=== PATIENT | male | born 1950 | race Caucasian/White ===

== ENCOUNTER 2020-05-13 16:27 | Inpatient (IN) | payer MEDICARE, OTHER ==
[~2020-05-13] VITALS: Ht 165.1 cm; Wt 61.7 kg
--- NOTE | 2020-05-13 16:40 | NUR ---
BIB [facility] FOR UNWITNESSED FALL. PATIENT A/OX4, BREATHING EVEN AND UNLABORED, NO SOB NOTED, NEEDS ATTENDED, KEPT COMFORTABLE.
--- NOTE | 2020-05-13 17:01 | NUR ---
TRUMAN SAWANT ([facility]) - [phone]
[2020-05-13 17:10] LABS: BASOPHILS % (AUTO) 0.5 % (0.0-2.0); EOSINOPHILS % (AUTO) 2.3 % (0.0-6.0); HEMATOCRIT 39 % (39-51); HEMOGLOBIN 13.2 g/dL (13.5-17.5); LYMPHOCYTES # (AUTO) 1.5 /CMM (0.8-4.8); LYMPHOCYTES % (AUTO) 20.8 % (20.0-44.0); MEAN CORPUSCULAR HGB CONC 34 g/dl (31.0-36.0); MEAN CORPUSCULAR VOLUME 91 fL (80-96); MONOCYTES # (AUTO) 0.4 /CMM (0.1-1.30); MONOCYTES % (AUTO) 5.9 % (2.0-12.0); NEUTROPHILS % (AUTO) 70.5 % (43.0-81.0); PLATELET COUNT (AUTO) 203 /CMM (150-450); RED BLOOD CELL COUNT(AUTO) 4.32 MIL/uL (4.5-6.0); WHITE BLOOD COUNT (AUTO) 7.1 K/uL (4.3-11.0)
[2020-05-13 17:17] LABS: CALCIUM, SERUM 8.7 mg/dL (8.5-10.1); CREATININE 1.1 mg/dL (0.6-1.3); POTASSIUM 4.2 mmol/L (3.5-5.1)
[2020-05-13] MEDS ORDERED: LEVO75TA7 PO (17:27)
[2020-05-13] MEDS ORDERED: XEROFORM TD (17:27)
[2020-05-13] MEDS ORDERED: MAG30ORA PO (17:27)
[2020-05-13] MEDS ORDERED: ACET-868 PO (17:27)
[2020-05-13] MEDS ORDERED: DIVA-78 PO (17:27)
[2020-05-13] MEDS ORDERED: RISP0.2515 PO (17:27)
[2020-05-13] MEDS ORDERED: BENZ0.5T43 PO (17:27)
[2020-05-13] MEDS ORDERED: ASPI-1169 PO (17:27)
[2020-05-13] MEDS ORDERED: ATOR40TA PO (17:27)
[2020-05-13] MEDS ORDERED: LISI2.5T2 PO (17:27)
[2020-05-13] MEDS ORDERED: MAGN400O6 PO (17:27)
[2020-05-13] MEDS ORDERED: INSU100V3 SQ (17:27)
[2020-05-13] MEDS ORDERED: MEMA10TA PO (17:27)
[2020-05-13] MEDS ORDERED: IV NS 0.9% 1,000 ML IV ONE (18:30)
[2020-05-13] MEDS ORDERED: ONDANSETRON HCL/PF 4 MG/2 ML VIAL IVP PRN (19:00)
[2020-05-13] MEDS ORDERED: *INSULIN REGULAR(HUMULIN R)HUM 100 UNIT/ML VIAL SQ PRN (19:00)
[2020-05-13] MEDS ORDERED: MAGNESIUM HYDROXIDE 30 ML UDC PO PRN ×2 (19:00)
[2020-05-13] MEDS ORDERED: MAG HYDROX/AL HYDROX/SIMETH 30 ML UDC PO PRN ×2 (19:00)
[2020-05-13] MEDS ORDERED: Z GUARD REMEDY 2 OZ OINT TP PRN (19:00)
[2020-05-13] MEDS ORDERED: ACETAMINOPHEN 325 MG TABLET PO PRN ×2 (19:00)
[2020-05-13] MEDS ORDERED: HYDROCODONE/APAP 5/325MG TABLET PO PRN (19:00)
[2020-05-13] MEDS ORDERED: DEXTROSE 50%-WATER 50 ML DISP.SYRIN IV PRN (19:00)
--- NOTE | 2020-05-13 19:22 | NUR ---
PATIENT A/OX2-3, BREATHING EVEN AND UNLABORED, IN STABLE CONDITION. ENDORSED TO JESICA FORMAN FOR PEDRO.
--- NOTE | 2020-05-13 19:38 | NUR ---
CONDOM CATHETER IN PLACED.
--- NOTE | 2020-05-13 19:38 | NUR ---
COVID SWAB SENT
--- NOTE | 2020-05-13 19:38 | NUR ---
ENDORSED TO JESICA FORMAN.
--- NOTE | 2020-05-13 20:07 | NUR ---
CALL FROM LAB, RAPID COVID NEGATIVE.
--- NOTE | 2020-05-13 22:09 | NUR ---
report given to uriah jin for edgar pt will be transported to 1st floor
--- NOTE | 2020-05-13 23:00 | NUR ---
OFFICE NURSEANALYSIS SPECIALIST NOTE ADMITTED AT 69 YEAR OLD MALE WITH ADMITTING DX OF SYNCOPE. PMH OF DM, OA, HLD, DEMENTIA AND EPILEPSY. CODE STATUS FULLCODE WITH NKA NOTED. PT A/O X1. FARSI SPEAKING WITH A LITTLE RWANDAN. BREATHING EVEN AND UNLABORED WITH NO SOB OR ACUTE DISTRESS NOTED. DENIES ANY PAIN OR DISCOMFORT. BED BATH PROVIDED.SKIN AND BODY ASSESSMENT DONE. NOTED WITH ABRASION ON LEFT FOREHEAD (2CMX.2CM). NO BLEEDING NOTED. BELONGINGS INVENTORY DONE. BED IN LOWEST POSITION .SRX2 UP. CALL LIGHT WITHIN REACH. ALL NEEDS RENDERED. WILL CONTINUE TO MONITOR.
--- NOTE | 2020-05-13 23:09 | NUR ---
pt transported to 1st floor
[2020-05-13] MEDS: IV NS 0.9% 1,000 ML IV PRN (23:38)
[2020-05-13] MEDS: MEMANTINE HCL 5 MG TABLET PO SCH (23:40)
[2020-05-13] MEDS: ATORVASTATIN 40 MG TABLET PO SCH (23:40)
[2020-05-13] MEDS: BLOOD SUGAR DIAGNOSTIC 1 EACH STRIP VI SCH (23:58)
[2020-05-14] VITALS: BP 136/67
[2020-05-14 04:00] VITALS: BP 132/70
[2020-05-14 06:30] LABS: BASOPHILS % (AUTO) 0.6 % (0.0-2.0); EOSINOPHILS % (AUTO) 4.2 % (0.0-6.0); HEMATOCRIT 38 % (39-51); HEMOGLOBIN 12.7 g/dL (13.5-17.5); LYMPHOCYTES # (AUTO) 1.9 /CMM (0.8-4.8); LYMPHOCYTES % (AUTO) 32.7 % (20.0-44.0); MEAN CORPUSCULAR HGB CONC 33 g/dl (31.0-36.0); MEAN CORPUSCULAR VOLUME 91 fL (80-96); MONOCYTES # (AUTO) 0.4 /CMM (0.1-1.30); MONOCYTES % (AUTO) 7.7 % (2.0-12.0); NEUTROPHILS # (AUTO) 3.1 /CMM (1.8-8.9); NEUTROPHILS % (AUTO) 54.8 % (43.0-81.0); PLATELET COUNT (AUTO) 203 /CMM (150-450); RED BLOOD CELL COUNT(AUTO) 4.17 MIL/uL (4.5-6.0); WHITE BLOOD COUNT (AUTO) 5.7 K/uL (4.3-11.0)
[2020-05-14] MEDS: BLOOD SUGAR DIAGNOSTIC 1 EACH STRIP VI SCH ×4 (06:31→22:20)
[2020-05-14] MEDS: INSULIN REGULAR, HUMAN 100 UNIT/ML 3 ML VIAL SQ PRN ×3 (06:32→17:41)
--- NOTE | 2020-05-14 06:33 | NUR ---
PARKING ATTENDANT CLOSING NOTE PT IN BED. AWAKE A/O X2 AND EPISODE OF CONFUSION.ORIENTED TO TIME AND PLACE. BREATHING EVEN AND UNLABORED WITH NO SOB OR ACUTE DISTRESS NOTED ON RA. DENIES ANY PAIN. RFA IV SITE PATENT . IV FLUIDS INFUSING WELL. ALL NEEDS RENDERED .CALL LIGHT WITHIN REACH. BED IN LOWEST POSITION. SRX2 UP . WILL ENDORSE TO AM NURSE FOR CONTINUITY OF CARE.
[2020-05-14 06:50] LABS: CALCIUM, SERUM 7.7 mg/dL (8.5-10.1); CREATININE 0.8 mg/dL (0.6-1.3); PHOSPHORUS 3.2 mg/dL (2.5-4.9); POTASSIUM 3.6 mmol/L (3.5-5.1)
--- NOTE | 2020-05-14 07:30 | NUR ---
RN OPENING NOTE PT A/O X1 FARSI SPEAKING WITH A LITTLE WOLOF. BREATHING EVEN AND UNLABORED WITH NO SOB OR ACUTE DISTRESS NOTED. DENIES ANY PAIN OR DISCOMFORT. NO S/S OF HYPO/HYPERGLYCEMIA NOTED.BED BATH PROVIDED.SKIN AND BODY ASSESSMENT DONE. NOTED WITH ABRASION ON LEFT FOREHEAD . SAFETY MEASURES INTACT.BED IN LOWEST POSITION . SRX2 UP. CALL LIGHT WITHIN REACH. ALL NEEDS RENDERED. WILL CONTINUE TO MONITOR.
[2020-05-14 08:00] VITALS: BP 118/58
[2020-05-14] MEDS: LEVOTHYROXINE SODIUM 75 MCG TABLET PO SCH (08:46)
[2020-05-14] MEDS: ASPIRIN 81 MG TAB.CHEW PO SCH (08:46)
[2020-05-14] MEDS: LISINOPRIL (5MG) 5 MG TABLET PO SCH (08:47)
[2020-05-14] MEDS: MEMANTINE HCL 5 MG TABLET PO SCH ×2 (08:47→17:33)
[2020-05-14] MEDS: DIVALPROEX SODIUM 500 MG TABLET.DR PO SCH ×3 (08:48→17:33)
[2020-05-14] MEDS: BENZTROPINE MESYLATE (1 MG) 1 MG TABLET PO SCH ×2 (08:49→17:33)
[2020-05-14 10:51] LABS: THYROID STIMULATING HORMONE 148.891 uIU/mL (0.358-3.74)
[2020-05-14 12:00] VITALS: BP 96/67
[2020-05-14] MEDS: IV NS 0.9% 1,000 ML IV PRN (12:14)
[2020-05-14 16:00] VITALS: BP 92/56
--- NOTE | 2020-05-14 19:10 | NUR ---
RN OPENING NOTES RECEIVED PT IN BED. ASLEEP. A/O X 2-3. PT IS OFTEN CONFUSED, NEEDS REORIENTATION. COOPERATIVE WITH CARE. FULL CODE NOTED. TELEMETRY MONITORING IN PLACE. NO SIGNS OF RESP DISTRESS OR SOB. BREATHING IS EVEN AND UNLABORED. PT IS BEDBOUND. USES BEDPAN. IV SITE FLUSHED AND PATENT, RUNNING NS @ 75 ML/HR. NO SIGNS OR SYMPTOMS OF INFILTRATION NOTED AT THIS TIME. PT IS ON REGULAR DIET. BED IS LOCKED IN LOWEST POSITION WITH BED ALARM ON. CALL LIGHT WITHIN REACH. WILL CONTINUE TO MONITOR.
[2020-05-14 20:00] VITALS: BP 139/71
[2020-05-14] MEDS ORDERED: risperiDONE 1 MG TABLET PO SCH (22:00)
[2020-05-14] MEDS: ATORVASTATIN 40 MG TABLET PO SCH (22:20)
--- NOTE | 2020-05-14 23:58 | NUR ---
PT IS CURRENTLY RESTING IN BED. NO S/S OF RESP DISTRESS OR SOB/ BREATHING EVEN AND UNLABORED. NEEDS ATTENDED. COOPERATIVE WITH CARE.
[2020-05-15] VITALS: BP 115/68
--- NOTE | 2020-05-15 03:40 | NUR ---
pt refusing EKG. RN aware.
--- NOTE | 2020-05-15 03:45 | NUR ---
PT IS SITTING ON SIDE OF BED. ATTEMPTING TO TAKE OFF LEADS. GOWN IS OFF. PT IS CONFUSED. SLIGHTLY AGITATED AND CONFRONTATIONAL. REDIRECTION NOT SUCCESSFUL. PT VERBALIZES TO STEP AWAY FROM HIM AND NOT TO TOUCH HIM. IVF NOT RUNNING AT THIS TIME BECAUSE PT CONTINUES TO NOT COOPERATE AND COMPLY WITH TREATMENT. RN SITTING OUTSIDE, CONSTANT VISUAL MONITORING FOR SAFETY.
[2020-05-15 04:00] VITALS: BP 111/66
--- NOTE | 2020-05-15 04:20 | NUR ---
CHARGE NURSE ABLE TO CALM DOWN PT, COOPERATIVE WITH CARE. BED BATH PERFORMED. LINENS CHANGED. IVF BACK ON AND RUNNING. PT CURRENTLY ASLEEP IN BED. WILL CONTINUE TO MONITOR.
--- NOTE | 2020-05-15 07:30 | NUR ---
RN Opening note Received patient in bed sleeping, AO x 2, able to responds all stimuli. Does no appears pain or distress, skin is warm to touch keep clean/dry, intact IV site and good patent with flash. Respiratory even and unlabored on room air, no sob or respiratory distress observed. Kept locked bed with elevated HOB for ensure airway and aspiration precaution and lowest position for safety. Call light within reach, will continue to monitor.
--- NOTE | 2020-05-15 07:49 | NUR ---
RN CLOSING NOTE PT IS RESTING IN BED. NO S/S OF RESP DISTRESS AT THIS TIME. NEEDS ATTENDED. BED IS LOCKED IN LOWEST POSITION WITH BED ALARM ON. CALL LIGHT WITHIN REACH. ENDORSED TO AM NURSE FOR CONTINUATION OF CARE.
[2020-05-15] MEDS: LEVOTHYROXINE SODIUM 75 MCG TABLET PO SCH (07:52)
[2020-05-15] MEDS: BLOOD SUGAR DIAGNOSTIC 1 EACH STRIP VI SCH (07:52)
[2020-05-15 08:00] VITALS: BP 125/71
[2020-05-15] MEDS: MEMANTINE HCL 5 MG TABLET PO SCH (09:57)
[2020-05-15] MEDS: DIVALPROEX SODIUM 500 MG TABLET.DR PO SCH (09:57)
[2020-05-15] MEDS: BENZTROPINE MESYLATE (1 MG) 1 MG TABLET PO SCH (09:57)
[2020-05-15] MEDS: ASPIRIN 81 MG TAB.CHEW PO SCH (09:57)
[2020-05-15 09:58] VITALS: BP 125/71
[2020-05-15] MEDS: LISINOPRIL (5MG) 5 MG TABLET PO SCH (09:58)
[2020-05-15] MEDS ORDERED: LEVO100T9 PO (11:12)
--- NOTE | 2020-05-15 11:30 | NUR ---
PAtient is not AO x 4, Vaccine status unknown and not given.
--- NOTE | 2020-05-15 13:35 | NUR ---
PAtient discharge to home, given discharge instruction to Joselyn/Flor include follow up PCP. Patient in stable condition, wound picture taken on forehead. Patient accompanied by staff to private car and left facility.
== END 2020-05-15 13:25 | disposition home or self-care (01) | DRG 913 ==
LOC: ER 16:32 → TELE1 22:34
PROVIDERS: ADMIT Internal Medicine; ATTEND Internal Medicine
DX: S09.90XA Unspecified injury of head, initial encounter (principal); G93.41 Metabolic encephalopathy; E03.9 Hypothyroidism, unspecified; F03.90 Unspecified dementia, unspecified severity, without behavioral disturbance, psychotic disturbance, mood disturbance, and anxiety; X58.XXXA Exposure to other specified factors, initial encounter; I10 Essential (primary) hypertension; G40.909 Epilepsy, unspecified, not intractable, without status epilepticus; E78.5 Hyperlipidemia, unspecified; D63.8 Anemia in other chronic diseases classified elsewhere; F07.81 Postconcussional syndrome; W19.XXXA Unspecified fall, initial encounter; Y93.9 Activity, unspecified; Y92.89 Other specified places as the place of occurrence of the external cause; E11.65 Type 2 diabetes mellitus with hyperglycemia; Z79.4 Long term (current) use of insulin
CPT/HCPCS: 36415; 70450-TC; 71045-TC; 72125-TC; 80048-TC; 80061-TC; 82728-TC; 82962-TC; 83540-TC; 83735-TC; 84100-TC; 84439-TC; 84443-TC; 84484-TC; 85025-TC; 87081-TC; 93307-TC; C9803; G0378; J1815; J3490; J7030; J7050